=== PATIENT | male | born 1965 | race Caucasian/White ===

== ENCOUNTER → 2016-09-15 | Outpatient (CLI) | payer BC ==
--- NOTE | 2016-09-15 09:18 | DIAGNOSTIC IMAGING REPORT ---
CHEST 2 VIEWS ROUTINE HISTORY: Cough. COMPARISON: None. FINDINGS: The lungs are clear. Cardiac silhouette is normal in size. No pleural effusions. No pneumothorax. IMPRESSION: No acute process. Electronically signed by: Refugio Mckinney M.D. 09/15/2016 9:16 AM Dictated Date/Time: 09/15/2016 9:13 AM
== END | disposition home or self-care (01) ==
LOC: C.RAD1850 08:59
PROVIDERS: ATTEND Family Medicine Adolescent Medicine
DX: R05 Cough (principal)

== ENCOUNTER → 2017-08-03 | Outpatient (CLI) | payer BC ==
--- NOTE | 2017-08-03 12:27 | DIAGNOSTIC IMAGING REPORT ---
CHEST 2 VIEWS ROUTINE CLINICAL HISTORY: Atypical chest pain. Shortness of breath. Left shoulder pain. COMPARISON STUDY: 09/15/2016 FINDINGS: The cardiac and mediastinal contours are normal. There is no evidence of focal pulmonary consolidation. There is no evidence of failure. No pleural effusions are visualized.[ No pneumothorax is visualized. IMPRESSION: No active disease in the chest. Electronically signed by: Tera Miller M.D. 08/03/2017 12:26 PM Dictated Date/Time: 08/03/2017 12:25 PM
== END | disposition home or self-care (01) ==
LOC: C.RAD1850 12:18
PROVIDERS: ATTEND Nurse Practitioner Family
DX: R07.9 Chest pain, unspecified (principal); I10 Essential (primary) hypertension; M25.512 Pain in left shoulder; R06.02 Shortness of breath

== ENCOUNTER → 2017-12-15 | Outpatient (CLI) | payer OTHER ==
--- NOTE | 2017-12-15 08:53 | DIAGNOSTIC IMAGING REPORT ---
ABDOMEN COMPLETE (US) CLINICAL HISTORY: ABD DISTENTION COMPARISON STUDY: No previous studies for comparison. FINDINGS: The liver appears sonographically normal. The pancreas appears sonographically normal. The gallbladder surgically absent. There is no ductal dilatation. The common bile duct measures 5 mm. The spleen measures 11 cm. No splenic masses are visualized. The right kidney measures 10.6 cm in length. The left kidney measures 10.5 cm in length. No renal masses are visualized. There is no hydronephrosis. There is bilateral renal cortical thinning. There is no evidence of abdominal aortic dilatation. The IVC appears normal as visualized. IMPRESSION: 1. Surgically absent gallbladder 2. Bilateral renal cortical thinning 3. Otherwise normal abdominal ultrasound. Electronically signed by: Tera Miller M.D. 12/15/2017 8:19 AM Dictated Date/Time: 12/15/2017 8:17 AM
== END | disposition home or self-care (01) ==
LOC: C.ULTR 07:23
PROVIDERS: ATTEND Family Medicine
DX: R14.0 Abdominal distension (gaseous) (principal); Z90.49 Acquired absence of other specified parts of digestive tract

== ENCOUNTER → 2018-03-23 | Outpatient (CLI) | payer OTHER ==
--- NOTE | 2018-03-23 14:54 | DIAGNOSTIC IMAGING REPORT ---
L VENOUS DOPP LOWER EXT UNILAT CLINICAL HISTORY: LEFT LEG PAIN AND SWELLING R/O DVT TECHNIQUE: Venous Doppler COMPARISON STUDY: None FINDINGS: Normal study IMPRESSION: Normal study The above report was generated using voice recognition software. It may contain grammatical, syntax or spelling errors. Electronically signed by: Yuri Hammer M.D. 03/23/2018 2:52 PM Dictated Date/Time: 03/23/2018 2:52 PM
== END | disposition home or self-care (01) ==
LOC: C.ULTRBC 14:26
PROVIDERS: ATTEND Family Medicine
DX: M79.606 Pain in leg, unspecified (principal)